=== PATIENT | male | born 1970 ===

== ENCOUNTER 2018-05-19 15:37 | Emergency (ER) | payer SELFPAY ==
[~2018-05-19] VITALS: Ht 167.6 cm; Wt 93.6 kg
[2018-05-19 15:45] VITALS: TEMP 98.3
[2018-05-19] MEDS ORDERED: PREDNISONE20 MG PO (16:07)
[2018-05-19] MEDS ORDERED: VENTOLIN0.09 MG IH (16:07)
[2018-05-19] MEDS ORDERED: PROTONIX 40MG T40 MG PO (16:07)
[2018-05-19 17:16] VITALS: BP 129/88; PULSE 90
== END 2018-05-19 17:18 | disposition home or self-care (01) ==
LOC: COL.ER 15:37
DX: J45.901 Unspecified asthma with (acute) exacerbation (principal); K21.9 Gastro-esophageal reflux disease without esophagitis
CPT/HCPCS: J7512